=== PATIENT | male | born 1965 | race African-American/Black ===

== ENCOUNTER 2017-08-31 15:36 | Inpatient (IN) | payer OTHER ==
[2017-08-31 17:26] VITALS: BMI 23.3
--- NOTE | 2017-08-31 21:02 | HP ---
Admission ROS [facility] Chief Complaint: Seeking admission to Rehab. Allergies/Adverse Reactions: Allergies Allergy/AdvReac Type Severity Reaction Status Date / Time No Known Allergies Allergy Verified 08/31/17 23:18 History of Present Illness: 52 years old male with a long history of alcohol dependence is seeking admission to Rehab. As per patient, this is his first admission to [facility] and to Rehab. He has medical history of depression and anxiety and he denies suicide attempt and suicidal ideation at this time. - Ebola screening Have you traveled outside of the country in the last 21 days: No (N) Have you had contact with anyone from an Ebola affected area: No Have you been sick,other than usual withdrawal symptoms: No Do you have a fever: No - Review of Systems Constitutional: No Symptoms Reported EENT: reports: No Symptoms Reported Respiratory: reports: No Symptoms reported Cardiac: reports: No Symptoms Reported GI: reports: No Symptoms Reported : reports: No Symptoms Reported Musculoskeletal: reports: No Symptoms Reported Integumentary: reports: No Symptoms Reported Neuro: reports: No Symptoms reported Endocrine: reports: No Symptoms Reported Hematology: reports: No Symptoms Reported Psychiatric: reports: No Sypmtoms Reported, Orientated x3 Other Systems: Reviewed and Negative Patient History - Patient Medical History Hx Anemia: No Hx Asthma: No Hx Chronic Obstructive Pulmonary Disease (COPD): No Hx Cancer: No Hx Cardiac Disorders: No Hx Congestive Heart Failure: No Hx Hypertension: No Hx Hypercholesterolemia: No Hx Pacemaker: No HX Cerebrovascular Accident: No Hx Seizures: No Hx Dementia: No Hx Diabetes: No Hx Gastrointestinal Disorders: No Hx Liver Disease: No Hx Genitourinary Disorders: No Hx Sexually Transmitted Disorders: No Hx Renal Disease (ESRD): No Hx Thyroid Disease: No Hx Human Immunodeficiency Virus (HIV): No (Negative 2008) Hx Hepatitis C: No Hx Depression: Yes (Not on medication) Hx Suicide Attempt: No (Denies suicide attempt and suicidal ideation at this time) Hx Bipolar Disorder: No Hx Schizophrenia: No Other Medical History: Anxiety- Not on medication - Patient Surgical History Past Surgical History: No - PPD History Previous Implant?: Yes Documented Results: Negative w/o proof Implanted On Prior [facility] Admission?: No PPD to be Administered?: Yes - Reproductive History Patient is a Female of Child Bearing Age (11 -55 yrs old): No (MALE) - Smoking Cessation Smoking history: Former smoker Have you smoked in the past 12 months: No Hx Chewing Tobacco Use: No Initiated information on smoking cessation: No - Substance & Tx. History Hx Alcohol Use: Yes Hx Substance Use: Yes Substance Use Type: Alcohol, Cocaine Hx Substance Use Treatment: Yes ([place], [place]) - Substances Abused Alcohol Route: Oral Frequency: Daily Amount used: VODKA - 1 LITER Age of first use: 13 Date of Last Use: 08/30/17 Cocaine Route: Smoking Frequency: Daily Amount used: $100 Age of first use: 18 Date of Last Use: 08/30/17 Family Disease History - Family Disease History Family History: Denies Admission Physical Exam [facility] - Vital Signs Vital Signs: Vital Signs - 24 hr 08/31/17 17:24 Temperature 97.1 F L Pulse Rate 59 L Respiratory 17 Rate Blood Pressure 104/69 - Physical General Appearance: Yes: Within Normal Limits, No Apparent Distress, Appropriately Dressed HEENTM: Yes: EOMI, Normal ENT Inspection, Normocephalic, Normal Voice, ALEKSANDRA Respiratory: Yes: Lungs Clear, Normal Breath Sounds, No Respiratory Distress Neck: Yes: Supple Breast: Yes: Breast Exam Deferred Abdominal: Yes: Normal Bowel Sounds, Non Tender, Soft Genitourinary: Yes: Within Normal Limits Back: Yes: Normal Inspection Musculoskeletal: Yes: Within Normal Limits, Gait Steady Extremities: Yes: Normal Inspection, Non-Tender Neurological: Yes: Fully Oriented, Normal Mood/Affect, Normal Response Integumentary: Yes: Warm Lymphatic: Yes: Within Normal Limits - Diagnostic (1) Uncomplicated alcohol dependence Current Visit: Yes Status: Chronic (2) Cocaine dependence, uncomplicated Current Visit: Yes Status: Chronic (3) Depression Current Visit: Yes Status: Chronic Qualifiers: Depression Type: unspecified Qualified Code(s): F32.9 - Major depressive disorder, single episode, unspecified (4) Anxiety Current Visit: Yes Status: Chronic Cleared for Admission [facility] - Detox or Rehab [facility] Level of Care: Observation Bed Claeared for Rehab Admission: Yes [facility] Breath Alcohol Content Breath Alcohol Content: 0 Urine Drug Screen - Results Drug Screen Negative: No Urine Drug Screen Results: YEISON-Cocaine, BZO-Benzodiazepines Inpatient Rehab Admission - Initial Determination Are CD services needed?: Yes Free of communicable disease: Yes Not in need of hospitalization: Yes - Rehab Admission Criteria Previous failed treatment: Yes Poor recovery environment: Yes Comorbidities: No Lacks judgement: No Patient is meeting Inpatient Rehab admission criteria:: Yes
[2017-08-31] MEDS ORDERED: LOPERAMIDE HCL 2 MG CAPSULE PO PRN (21:15)
[2017-08-31] MEDS ORDERED: MENTHOL/PHENOL 1 EACH UD MM PRN (21:15)
[2017-08-31] MEDS ORDERED: ACETAMINOPHEN 325 MG TABLET (FP) PO PRN (21:15)
[2017-08-31] MEDS ORDERED: MAGNESIUM HYDROX 2400MG/30ML ORAL SUSPENSION 30 ML CUP PO PRN (21:15)
[2017-08-31] MEDS ORDERED: MAG HYDROX/AL HYDROX/SIMETH 30 ML UNIT-DOSE CUP PO PRN (21:15)
[2017-08-31] MEDS ORDERED: IBUPROFEN 400 MG TABLET (FP) PO PRN (21:15)
[2017-08-31] MEDS ORDERED: NICOTINE POLACRILEX 2 MG GUM BUC PRN (21:15)
[2017-08-31] MEDS ORDERED: MAGNESIUM CITRATE 300 ML BOTTLE PO PRN (21:15)
[2017-08-31] MEDS ORDERED: guaiFENesin/D-METHORPHAN HB 10 ML UNIT-DOSE CUPS PO PRN (21:15)
[2017-08-31] MEDS ORDERED: P-EPHED 60MG/TRIPROLIDI 2.5MG TABLET PO PRN (21:15)
[2017-08-31] MEDS: THIAMINE HCL 100 MG TABLET (FP) PO SCH (23:22)
[2017-08-31] MEDS ORDERED: TUBERCULIN PPD 5 TU/0.1ML VIAL ID ONE (23:27)
[2017-09-01 09:28] LABS: URINE APPEARANCE CLEAR; URINE BILIRUBIN NEGATIVE (<2.0 mg/dL); URINE COLOR LTYELLOW; URINE GLUCOSE (UA) NEGATIVE (NEGATIVE); URINE KETONE NEGATIVE (NEGATIVE); URINE LEUK ESTERASE NEGATIVE (NEGATIVE); URINE NITRITE NEGATIVE (NEGATIVE); URINE PROTEIN NEGATIVE (NEGATIVE); URINE UROBILINOGEN NEGATIVE mg/dL (0.2-1.0)
[2017-09-01] MEDS: PRENATAL VITAMINS W/ FOLIC ACID TABLET (FP) PO SCH (10:50)
[2017-09-01] MEDS: NICOTINE 14 MG/24 HOURS TOPICAL PATCH TD SCH (10:50)
[2017-09-01 11:11] LABS: HEMATOCRIT 40.5 % (35.4-49); HEMOGLOBIN 13.5 GM/dL (11.7-16.9); MCH 31.4 pg (25.7-33.7); MCHC 33.4 g/dl (32.0-35.9); MEAN CELL VOLUME 94.2 fl (80-96); MEAN PLT VOLUME 8.8 fl (7.5-11.1); PLATELET COUNT 229 K/MM3 (134-434); RDW 12.2 % (11.9-15.9); WHITE BLOOD COUNT 6.7 K/mm3 (4.0-10.0)
[2017-09-01 11:32] LABS: CHLORIDE 105 mmol/L (98-107); POTASSIUM 4.2 mmol/L (3.5-5.1); SODIUM 141 mmol/L (136-145)
[2017-09-01 11:53] LABS: ALBUMIN 3.7 g/dl (3.4-5.0); ALK PHOS 55 U/L (45-117); ANION GAP 8 (8-16); BILIRUBIN,TOTAL 0.5 mg/dL (0.2-1.0); BLOOD UREA NITROGEN 17 mg/dL (7-18); CALCIUM 9.2 mg/dL (8.5-10.1); CO2 28 mmol/L (21-32); CREATININE 0.9 mg/dL (0.7-1.3); GLUCOSE,RANDOM 88 mg/dL (74-106); SGOT/AST 21 U/L (15-37); SGPT/ALT 26 U/L (12-78); TOT PROT 7.3 g/dl (6.4-8.2)
[2017-09-01] MEDS: THIAMINE HCL 100 MG TABLET (FP) PO SCH (21:43)
[2017-09-02] MEDS: PRENATAL VITAMINS W/ FOLIC ACID TABLET (FP) PO SCH (10:00)
[2017-09-02] MEDS: NICOTINE 14 MG/24 HOURS TOPICAL PATCH TD SCH (10:00)
--- NOTE | 2017-09-02 10:18 | EKG ---
Test Reason : Blood Pressure : / mmHG Vent. Rate : 048 BPM Atrial Rate : 048 BPM P-R Int : 190 ms QRS Dur : 090 ms QT Int : 440 ms P-R-T Axes : -13 036 -04 degrees QTc Int : 393 ms SINUS BRADYCARDIA OTHERWISE NORMAL ECG NO PREVIOUS ECGS AVAILABLE Confirmed by HENRIETTA HUGGINS MD ([id number]) on 09/02/2017 10:17:29 AM Referred By: Confirmed By:HENRIETTA HUGGINS MD
[2017-09-02] MEDS: THIAMINE HCL 100 MG TABLET (FP) PO SCH (21:30)
--- NOTE | 2017-09-03 10:48 | HP ---
Psychiatrist Admission - Data Date of interview: 09/03/17 Admission source: self Identifying data: This is 52 years old male, single, father of 5two, homeless, unemployed, on PA, with a history of two psychiatric hospitalization due to depressed mood, with most recent one a week ago at [facility]. This is first admition to [facility] for rehabilitation. Patient reports Crack dependency since 8 months ago. Medical History: Denies significant medical issues. Psychiatric History: Patient reports depression since 8 month ago after in a family. Reports to carry Depressive disorder, as per computer MDD. denies suicidal, homicidal history. Physical/Sexual Abuse/Trauma History: Denies Additional Comment: Patient motivated to quit Crack abuse/ dependence, denies other street drugs usage. Vital Signs: Vital Signs - 24 hr 09/03/17 09/03/17 09/03/17 00:30 03:30 07:31 Temperature 98.0 F Pulse Rate 55 L Respiratory 18 18 16 Rate Blood Pressure 91/57 Allergies/Adverse Reactions: Allergies Allergy/AdvReac Type Severity Reaction Status Date / Time No Known Allergies Allergy Verified 08/31/17 23:18 - Substance Abuse/Tx History Hx Alcohol Use: No (Denies) Substance Use Type: Cocaine Mental Status Exam - Mental Status Exam Alert and Oriented to: Place, Person Cognitive Function: Fair Patient Appearance: Well Groomed Mood: Anxious Affect: Mood Congruent Patient Behavior: Cooperative Speech Pattern: Appropriate Voice Loudness: Normal Thought Process: Goal Oriented Thought Disorder: Being Controlled Hallucinations: Denies Suicidal Ideation: Denies Homicidal Ideation: Denies Insight/Judgement: Fair Sleep: Fair Appetite: Good Muscle strength/Tone: Normal Gait/Station: Normal Additional Comments: Observation. Detox unit care protocol Psychiatric Findings - Problem List (Markle 1, 2,3) (1) Drug-induced mood disorder Current Visit: Yes Status: Suspected (2) Anxiety Current Visit: Yes Status: Chronic (3) Cocaine dependence, uncomplicated Current Visit: Yes Status: Chronic (4) Depression Current Visit: Yes Status: Chronic Qualifiers: Depression Type: unspecified Qualified Code(s): F32.9 - Major depressive disorder, single episode, unspecified (5) Uncomplicated alcohol dependence Current Visit: Yes Status: Chronic - Initial Treatment Plan Initial Treatment Plan: Observation. Detox unit care protocol
[2017-09-03] MEDS: PRENATAL VITAMINS W/ FOLIC ACID TABLET (FP) PO SCH (11:08)
[2017-09-03] MEDS: NICOTINE 14 MG/24 HOURS TOPICAL PATCH TD SCH (11:08)
[2017-09-03] MEDS ORDERED: diphenhydrAMINE HCL 50 MG CAPSULE PO ONE (13:45)
[2017-09-03] MEDS: THIAMINE HCL 100 MG TABLET (FP) PO SCH (21:43)
[2017-09-03] MEDS: MELATONIN 5 MG TABLETS PO PRN (21:43)
[2017-09-04] MEDS: NICOTINE 14 MG/24 HOURS TOPICAL PATCH TD SCH (10:38)
[2017-09-04] MEDS: PRENATAL VITAMINS W/ FOLIC ACID TABLET (FP) PO SCH (10:39)
--- NOTE | 2017-09-04 12:59 | PN ---
S Progress Note Note: Vital Signs Temperature 98.7 F 09/04/17 06:59 Pulse Rate 55 L 09/04/17 06:59 Respiratory Rate 16 09/04/17 06:59 Blood Pressure 99/63 09/04/17 06:59 O2 Sat by Pulse Oximetry (%) Patient requested d/c NRTS. Reports hes a non-smoker. Nicotine patch and gum d/ c as per patient request. Continue to monitor.
[2017-09-04] MEDS: THIAMINE HCL 100 MG TABLET (FP) PO SCH (21:21)
[2017-09-05] MEDS: PRENATAL VITAMINS W/ FOLIC ACID TABLET (FP) PO SCH (10:46)
[2017-09-05] MEDS: MELATONIN 5 MG TABLETS PO PRN (21:53)
[2017-09-05] MEDS: THIAMINE HCL 100 MG TABLET (FP) PO SCH (21:53)
[2017-09-06] MEDS: PRENATAL VITAMINS W/ FOLIC ACID TABLET (FP) PO SCH (10:15)
[2017-09-06] MEDS: THIAMINE HCL 100 MG TABLET (FP) PO SCH (21:11)
[2017-09-06] MEDS: MELATONIN 5 MG TABLETS PO PRN (21:11)
[2017-09-07] MEDS: PRENATAL VITAMINS W/ FOLIC ACID TABLET (FP) PO SCH (10:38)
[2017-09-07] MEDS: COLLOIDAL OATMEAL 1 BAR EACH TP PRN (15:14)
[2017-09-07] MEDS: THIAMINE HCL 100 MG TABLET (FP) PO SCH (21:48)
[2017-09-07] MEDS: MELATONIN 5 MG TABLETS PO PRN (21:49)
[2017-09-08] MEDS: PRENATAL VITAMINS W/ FOLIC ACID TABLET (FP) PO SCH (10:28)
[2017-09-08] MEDS: THIAMINE HCL 100 MG TABLET (FP) PO SCH (21:06)
[2017-09-08] MEDS: MELATONIN 5 MG TABLETS PO PRN (21:07)
[2017-09-09] MEDS: PRENATAL VITAMINS W/ FOLIC ACID TABLET (FP) PO SCH (10:23)
[2017-09-09] MEDS: MELATONIN 5 MG TABLETS PO PRN (21:43)
[2017-09-09] MEDS: THIAMINE HCL 100 MG TABLET (FP) PO SCH (21:43)
[2017-09-10] MEDS: PRENATAL VITAMINS W/ FOLIC ACID TABLET (FP) PO SCH (10:52)
[2017-09-10] MEDS: MELATONIN 5 MG TABLETS PO PRN (21:02)
[2017-09-10] MEDS: THIAMINE HCL 100 MG TABLET (FP) PO SCH (21:02)
[2017-09-11] MEDS: PRENATAL VITAMINS W/ FOLIC ACID TABLET (FP) PO SCH (10:27)
[2017-09-11] MEDS: THIAMINE HCL 100 MG TABLET (FP) PO SCH (21:30)
[2017-09-11] MEDS: MELATONIN 5 MG TABLETS PO PRN (21:30)
[2017-09-12] MEDS: PRENATAL VITAMINS W/ FOLIC ACID TABLET (FP) PO SCH (10:20)
[2017-09-12] MEDS: MELATONIN 5 MG TABLETS PO PRN (21:51)
[2017-09-12] MEDS: THIAMINE HCL 100 MG TABLET (FP) PO SCH (21:51)
[2017-09-13] MEDS: PRENATAL VITAMINS W/ FOLIC ACID TABLET (FP) PO SCH (10:29)
[2017-09-13] MEDS: MELATONIN 5 MG TABLETS PO PRN (21:34)
[2017-09-13] MEDS: THIAMINE HCL 100 MG TABLET (FP) PO SCH (21:34)
[2017-09-14] MEDS: COLLOIDAL OATMEAL 1 BAR EACH TP PRN (10:22)
[2017-09-14] MEDS: PRENATAL VITAMINS W/ FOLIC ACID TABLET (FP) PO SCH (10:23)
[2017-09-14] MEDS: THIAMINE HCL 100 MG TABLET (FP) PO SCH (21:46)
[2017-09-14] MEDS: MELATONIN 5 MG TABLETS PO PRN (21:46)
[2017-09-15] MEDS: PRENATAL VITAMINS W/ FOLIC ACID TABLET (FP) PO SCH (10:23)
[2017-09-15] MEDS: THIAMINE HCL 100 MG TABLET (FP) PO SCH (21:43)
[2017-09-15] MEDS: MELATONIN 5 MG TABLETS PO PRN (21:44)
[2017-09-16] MEDS: PRENATAL VITAMINS W/ FOLIC ACID TABLET (FP) PO SCH (10:28)
[2017-09-16] MEDS: MELATONIN 5 MG TABLETS PO PRN (21:35)
[2017-09-16] MEDS: THIAMINE HCL 100 MG TABLET (FP) PO SCH (21:45)
[2017-09-17] MEDS: PRENATAL VITAMINS W/ FOLIC ACID TABLET (FP) PO SCH (10:15)
[2017-09-17] MEDS: MELATONIN 5 MG TABLETS PO PRN (21:37)
[2017-09-17] MEDS: THIAMINE HCL 100 MG TABLET (FP) PO SCH (21:37)
[2017-09-18] MEDS: PRENATAL VITAMINS W/ FOLIC ACID TABLET (FP) PO SCH (10:25)
[2017-09-18] MEDS: THIAMINE HCL 100 MG TABLET (FP) PO SCH (21:37)
[2017-09-18] MEDS: MELATONIN 5 MG TABLETS PO PRN (21:37)
[2017-09-19] MEDS: PRENATAL VITAMINS W/ FOLIC ACID TABLET (FP) PO SCH (10:20)
[2017-09-19] MEDS: THIAMINE HCL 100 MG TABLET (FP) PO SCH (21:54)
[2017-09-19] MEDS: MELATONIN 5 MG TABLETS PO PRN (21:54)
[2017-09-20] MEDS: PRENATAL VITAMINS W/ FOLIC ACID TABLET (FP) PO SCH (10:31)
[2017-09-20] MEDS: THIAMINE HCL 100 MG TABLET (FP) PO SCH (21:50)
[2017-09-20] MEDS: MELATONIN 5 MG TABLETS PO PRN (21:50)
[2017-09-21] MEDS: PRENATAL VITAMINS W/ FOLIC ACID TABLET (FP) PO SCH (10:37)
[2017-09-21] MEDS: THIAMINE HCL 100 MG TABLET (FP) PO SCH (21:47)
[2017-09-21] MEDS: MELATONIN 5 MG TABLETS PO PRN (21:47)
[2017-09-22] MEDS: PRENATAL VITAMINS W/ FOLIC ACID TABLET (FP) PO SCH (10:54)
[2017-09-22] MEDS: MELATONIN 5 MG TABLETS PO PRN (21:54)
[2017-09-22] MEDS: THIAMINE HCL 100 MG TABLET (FP) PO SCH (21:54)
[2017-09-23] MEDS: COLLOIDAL OATMEAL 1 BAR EACH TP PRN (07:22)
[2017-09-23] MEDS: PRENATAL VITAMINS W/ FOLIC ACID TABLET (FP) PO SCH (10:15)
[2017-09-23] MEDS: MELATONIN 5 MG TABLETS PO PRN (21:20)
[2017-09-23] MEDS: THIAMINE HCL 100 MG TABLET (FP) PO SCH (21:20)
[2017-09-24 07:10] VITALS: PULSE 61
[2017-09-24] MEDS: PRENATAL VITAMINS W/ FOLIC ACID TABLET (FP) PO SCH (10:22)
[2017-09-24] MEDS: THIAMINE HCL 100 MG TABLET (FP) PO SCH (20:59)
[2017-09-24] MEDS: MELATONIN 5 MG TABLETS PO PRN (21:00)
[2017-09-25 07:02] VITALS: BP 108/61; TEMP 98
--- NOTE | 2017-09-25 10:00 | PN ---
Psychiatric Progress Note Vital Signs: Vital Signs Period Temp Pulse Resp BP Sys/Almendarez Pulse Ox Last 24 Hr 98.0 F 61 16-18 108/61 Date of Session: 09/25/17 Chief Complaint:: Discharge Note HPI: Patient addressing Alcohol and Cocaine dependence comorbid with Substance- Induced Mood Disorder Current Medications: Active Medications Generic Name Dose Route Start Last Admin Trade Name Freq PRN Reason Stop Dose Admin Acetaminophen 650 mg 08/31/17 21:15 Tylenol - PO Q4H PRN FEVER Al Hydroxide/Mg Hydroxide 30 ml 08/31/17 21:15 09/10/17 21:02 Mylanta Oral Suspension - PO 30 ml Q6H PRN Administration DYSPEPSIA Colloidal Oatmeal 1 applic 09/07/17 13:13 09/23/17 07:22 Aveeno Soap - TP 1 bar DAILY PRN Administration HYGEINE Eucalyptus/Menthol/Phenol/Sorbitol 1 each 08/31/17 21:15 Cepastat Lozenge - MM Q4H PRN SORE THROAT Guaifenesin 10 ml 08/31/17 21:15 Robitussin Dm - PO Q6H PRN COUGH Ibuprofen 400 mg 08/31/17 21:15 Motrin - PO Q6H PRN Pain level 4-6 Loperamide HCl 4 mg 08/31/17 21:15 Imodium - PO Q6H PRN DIARRHEA Magnesium Citrate 300 ml 08/31/17 21:15 Citroma - PO Q48H PRN CONSTIPATION Magnesium Hydroxide 30 ml 08/31/17 21:15 Milk Of Magnesia - PO DAILY PRN CONSTIPATION Melatonin 5 mg 08/31/17 22:00 09/24/17 21:00 Melatonin PO 5 mg HS PRN Administration INSOMNIA Multivit/Folic Acid/Iron 1 tab 09/01/17 10:00 09/24/17 10:22 Vitamins (Sjr) - PO 1 tab DAILY AMAN Administration Pseudoephedrine/Triprolidine 1 combo 08/31/17 21:15 Actifed - PO TID PRN NASAL CONGESTION Thiamine HCl 100 mg 08/31/17 22:00 09/24/17 20:59 Vitamin B1 - PO 100 mg HS AMAN Administration Current Side Effect: No Lab tests ordered: Yes Lab tests reviewed: Yes Provider note:: Noman has completed this program today. He has met his treatment goals and will continue to address his issues by atending AA/NA. 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 He is stable for discharge today Total face to face time:: 35 Mental Status Exam - Mental Status Exam Alert and Oriented to: Time, Place, Person Cognitive Function: Fair Patient Appearance: Well Groomed Mood: Hopeful, Euthymic Affect: Appropriate Patient Behavior: Cooperative Speech Pattern: Clear Voice Loudness: Normal Thought Process: Intact Thought Disorder: Not Present Hallucinations: Denies Suicidal Ideation: Denies Homicidal Ideation: Denies Insight/Judgement: Fair Sleep: Fair Appetite: Good Muscle strength/Tone: Normal Gait/Station: Normal Psychiatric Treatment Plan - Problem List (1) Alcohol dependence Current Visit: Yes (2) Cocaine dependence Current Visit: Yes Initial treatment plan: Patient is discharged today and plans to move to [place] where he will enroll in outpatient treatment
[2017-09-25] MEDS: PRENATAL VITAMINS W/ FOLIC ACID TABLET (FP) PO SCH (10:04)
== END 2017-09-25 10:30 | disposition home or self-care (01) | DRG 772 ==
LOC: YASAS 15:36 → Y5N 22:08
PROVIDERS: ADMIT Psychiatry & Neurology Psychiatry; ATTEND Psychiatry & Neurology Psychiatry
PROC: HZ42ZZZ Group Counseling for Substance Abuse Treatment, Cognitive-Behavioral (ICD-10-PCS; principal; 2017-08-31)
DX: F10.20 Alcohol dependence, uncomplicated (principal); F14.20 Cocaine dependence, uncomplicated; F19.24 Other psychoactive substance dependence with psychoactive substance-induced mood disorder; F41.9 Anxiety disorder, unspecified; F32.9 Major depressive disorder, single episode, unspecified
CPT/HCPCS: 36415; 80053; 81003; 85027; 85660; 86593; 93005; 93010

== ENCOUNTER 2018-01-29 12:16 | Inpatient (IN) | payer OTHER ==
[2018-01-29 12:51] VITALS: BMI 22.9
--- NOTE | 2018-01-29 13:27 | HP ---
CIWA Score Nausea/Vomitin-Mild Nausea/No Vomiting Muscle Tremors: 4-Moderate,w/Arms Extend Anxiety: 3 Agitation: 3 Paroxysmal Sweats: 3 Orientation: 0-Oriented Tacttile Disturbances: 0-None Auditory Disturbances: 0-None Visual Disturbances: 0-None Headache: 0-None Present CIWA-Ar Total Score: 14 - Admission Criteria [facility]ASAS Guidelines: Admission for Medically Managed Detox: Requires at least one of the followin. CIWA greater than 12 2. Seizures within the past 24 hours 3. Delirium tremens within the past 24 hours 4. Hallucinations within the past 24 hours 5. Acute intervention needed for co occurring medical disorder 6. Acute intervention needed for co occurring psychiatric disorder 7. Severe withdrawal that cannot be handled at a lower level of care (continued vomiting, continued diarrhea, abnormal vital signs) requiring intravenous medication and/or fluids 8. Admission ROS [facility] - HPI Chief Complaint: I have a family and need to get my life together. Allergies/Adverse Reactions: Allergies Allergy/AdvReac Type Severity Reaction Status Date / Time No Known Allergies Allergy Verified 08/31/17 23:18 History of Present Illness: pt is a 52yr old male with a history of alcohol and cocaine dependence seeking detox for treatment. Exam Limitations: No Limitations - Ebola screening Have you traveled outside of the country in the last 21 days: No Have you had contact with anyone from an Ebola affected area: No Have you been sick,other than usual withdrawal symptoms: No Do you have a fever: No - Review of Systems Constitutional: Chills, Diaphoresis, Loss of Appetite, Night Sweats, Changes in sleep, Weight Stable EENT: reports: No Symptoms Reported Respiratory: reports: No Symptoms reported Cardiac: reports: No Symptoms Reported GI: reports: Constipated, Nausea, Poor Fluid Intake, Indigestion : reports: No Symptoms Reported Musculoskeletal: reports: No Symptoms Reported Integumentary: reports: Flushing, Sweating Neuro: reports: Headache, Tingling, Tremors Endocrine: reports: Flushing, Intolerance to Heat, Increased Hunger Hematology: reports: No Symptoms Reported Psychiatric: reports: Judgement Intact, Mood/Affect Appropiate, Orientated x3, Agitated, Anxious Other Systems: Reviewed and Negative Patient History - Patient Medical History Hx Anemia: No Hx Asthma: No Hx Chronic Obstructive Pulmonary Disease (COPD): No Hx Cancer: No Hx Cardiac Disorders: No Hx Congestive Heart Failure: No Hx Hypertension: No Hx Hypercholesterolemia: No Hx Pacemaker: No HX Cerebrovascular Accident: No Hx Seizures: No Hx Dementia: No Hx Diabetes: No Hx Gastrointestinal Disorders: No Hx Liver Disease: No Hx Genitourinary Disorders: No Hx Sexually Transmitted Disorders: No Hx Renal Disease (ESRD): No Hx Thyroid Disease: No Hx Human Immunodeficiency Virus (HIV): No (Negative 2008) Hx Hepatitis C: No Hx Depression: Yes (Not on medication) Hx Suicide Attempt: No (Denies suicide attempt and suicidal ideation at this time) Hx Bipolar Disorder: No Hx Schizophrenia: No Other Medical History: not interested with seeing psych, not taking medication - Patient Surgical History Past Surgical History: No Hx Neurologic Surgery: No Hx Cataract Extraction: No Hx Cardiac Surgery: No Hx Lung Surgery: No Hx Breast Surgery: No Hx Breast Biopsy: No Hx Abdominal Surgery: No Hx Appendectomy: No Hx Cholecystectomy: No Hx Genitourinary Surgery: No Hx Section: No Hx Orthopedic Surgery: No Anesthesia Reaction: No - PPD History Previous Implant?: Yes Documented Results: Negative w/proof Date: 09/02/17 Results: 0 mm PPD to be Administered?: No - Reproductive History Patient is a Female of Child Bearing Age (11 -55 yrs old): No - Smoking Cessation Smoking history: Former smoker Have you smoked in the past 12 months: No Hx Chewing Tobacco Use: No Initiated information on smoking cessation: No - Substance & Tx. History Hx Alcohol Use: Yes Hx Substance Use: No Substance Use Type: Alcohol, Cocaine Hx Substance Use Treatment: No (last detox 08/2017) - Substances Abused Alcohol Route: Oral Frequency: Daily Amount used: a fifth of vodka Age of first use: 14 Date of Last Use: 01/29/18 Cocaine Route: Inhalation Frequency: Daily Amount used: 100 dollars Age of first use: 22 Date of Last Use: 01/28/18 Marijuana/Hashish Route: Smoking Frequency: Daily Amount used: 1 blunt Age of first use: 12 Date of Last Use: 01/28/18 Family Disease History - Family Disease History Family Disease History: Diabetes: Mother (h/o diabetes) Admission Physical Exam [facility] - Vital Signs Vital Signs: Vital Signs - 24 hr 01/29/18 12:50 Temperature 97.3 F L Pulse Rate 58 L Respiratory 18 Rate Blood Pressure 123/78 - Physical General Appearance: Yes: Appropriately Dressed, Moderate Distress, Thin, Tremorous, Irritable, Sweating, Anxious HEENTM: Yes: Hearing grossly Normal, Normal Voice, Nasal Congestion, Rhinorrhea Respiratory: Yes: Lungs Clear, Normal Breath Sounds, No Respiratory Distress Neck: Yes: No masses,lesions,Nodules Breast: Yes: Within Normal Limits Cardiology: Yes: Regular Rhythm, Regular Rate, S1, S2 Abdominal: Yes: Normal Bowel Sounds, Non Tender, Soft Genitourinary: Yes: Within Normal Limits Back: Yes: Normal Inspection Musculoskeletal: Yes: full range of Motion Extremities: Yes: Normal Capillary Refill, Normal Inspection, Non-Tender, Tremors Neurological: Yes: Fully Oriented, Alert, Normal Response Integumentary: Yes: Normal Color, Diaphoresis Lymphatic: Yes: Within Normal Limits - Diagnostic (1) Cocaine dependence, uncomplicated Current Visit: Yes Status: Chronic (2) Uncomplicated alcohol dependence Current Visit: Yes Status: Chronic (3) Cannabis dependence Current Visit: Yes Status: Chronic (4) Former cigarette smoker Current Visit: Yes Status: Chronic Cleared for Admission [facility] - Detox or Rehab [facility] Level of Care: Medically Managed Detox Regimen/Protocol: Librium [facility] Breath Alcohol Content Breath Alcohol Content: 0.104 Urine Drug Screen - Results Drug Screen Negative: No Urine Drug Screen Results: THC-Marijuana, YEISON-Cocaine
[2018-01-29] MEDS ORDERED: MAG HYDROX/AL HYDROX/SIMETH 30 ML UNIT-DOSE CUP PO PRN (13:47)
[2018-01-29] MEDS ORDERED: MAGNESIUM CITRATE 300 ML BOTTLE PO PRN (13:47)
[2018-01-29] MEDS ORDERED: LOPERAMIDE HCL 2 MG CAPSULE PO PRN (13:47)
[2018-01-29] MEDS ORDERED: hydrOXYzine PAMOATE 50 MG CAPSULE (FP) PO PRN (13:47)
[2018-01-29] MEDS ORDERED: ACETAMINOPHEN 325 MG TABLET (FP) PO PRN (13:47)
[2018-01-29] MEDS ORDERED: chlordiazePOXIDE HCL 25 MG CAPSULE PO PRN (13:47)
[2018-01-29] MEDS ORDERED: P-EPHED 60MG/TRIPROLIDI 2.5MG TABLET PO PRN (13:47)
[2018-01-29] MEDS ORDERED: guaiFENesin/D-METHORPHAN HB 10 ML UNIT-DOSE CUPS PO PRN (13:47)
[2018-01-29] MEDS ORDERED: IBUPROFEN 400 MG TABLET (FP) PO PRN (13:47)
[2018-01-29] MEDS ORDERED: MAGNESIUM HYDROX 2400MG/30ML ORAL SUSPENSION 30 ML CUP PO PRN (13:47)
[2018-01-29] MEDS ORDERED: MENTHOL/PHENOL 1 EACH UD MM PRN (13:47)
[2018-01-29] MEDS ORDERED: chlordiazePOXIDE HCL 25 MG CAPSULE PO ONE (15:50)
[2018-01-29] MEDS: chlordiazePOXIDE HCL 25 MG CAPSULE PO SCH ×2 (17:54→22:38)
[2018-01-29] MEDS ORDERED: MELATONIN 5 MG TABLETS PO PRN (22:00)
[2018-01-29] MEDS: THIAMINE HCL 100 MG TABLET (FP) PO SCH (22:38)
[2018-01-30] MEDS: chlordiazePOXIDE HCL 25 MG CAPSULE PO SCH ×4 (05:05→22:45)
[2018-01-30] MEDS: PRENATAL VITAMINS W/ FOLIC ACID TABLET (FP) PO SCH (10:07)
[2018-01-30 10:55] LABS: ALBUMIN 4.6 g/dl (3.4-5.0); ALK PHOS 50 U/L (45-117); ANION GAP 11 MMOL/L (8-16); BLOOD UREA NITROGEN 14 mg/dL (7-18); CALCIUM 9.2 mg/dL (8.5-10.1); CHLORIDE 103 mmol/L (98-107); CO2 26 mmol/L (21-32); CREATININE 1.1 mg/dL (0.55-1.3); GLUCOSE,RANDOM 95 mg/dL (74-106); POTASSIUM 3.5 mmol/L (3.5-5.1); SGOT/AST 19 U/L (15-37); SGPT/ALT 19 U/L (13-61); SODIUM 140 mmol/L (136-145); TOT PROT 8.1 g/dl (6.4-8.2)
[2018-01-30 11:15] LABS: HEMOGLOBIN 13.1 GM/dL (11.7-16.9); MCH 32.4 pg (25.7-33.7); MCHC 34.5 g/dl (32.0-35.9); MEAN CELL VOLUME 93.9 fl (80-96); MEAN PLT VOLUME 9.4 fl (7.5-11.1); PLATELET COUNT 290 K/MM3 (134-434); RBC 4.05 M/mm3 (4.00-5.60); RDW 12.9 % (11.9-15.9); WHITE BLOOD COUNT 8.9 K/mm3 (4.0-10.0)
--- NOTE | 2018-01-30 12:05 | PN ---
S CIWA - CIWA Score Nausea/Vomitin Muscle Tremors: 4-Moderate,w/Arms Extend Anxiety: 4-Mod. Anxious/Guarded Agitation: 4-Moderately Restless Paroxysmal Sweats: 3 Orientation: 0-Oriented Tacttile Disturbances: 1-Very Mild Itch/Numbness Auditory Disturbances: 0-None Visual Disturbances: 0-None Headache: 0-None Present CIWA-Ar Total Score: 18 [facility] Progress Note (SOAP) Subjective: Sweating, interrupted sleep Objective: 01/30/18 12:03 Last Vital Signs Temp Pulse Resp BP Pulse Ox 97.0 F L 59 L 18 100/57 L 01/30/18 09:06 01/30/18 09:06 01/30/18 09:06 01/30/18 09:06 Laboratory Tests 01/30/18 01/30/18 05:00 05:00 WBC 8.9 RBC 4.05 Hgb 13.1 Hct 38.0 MCV 93.9 MCH 32.4 MCHC 34.5 RDW 12.9 Plt Count 290 D MPV 9.4 Sodium 140 Potassium 3.5 Chloride 103 Carbon Dioxide 26 Anion Gap 11 BUN 14 Creatinine 1.1 Creat Clearance w eGFR > 60 Random Glucose 95 Calcium 9.2 Total Bilirubin 1.0 AST 19 ALT 19 Alkaline Phosphatase 50 Total Protein 8.1 Albumin 4.6 Labs reviewed Assessment: 01/30/18 12:05 Withdrawal symptoms Plan: Continue detox Encouraged PO water intake
[2018-01-30] MEDS: THIAMINE HCL 100 MG TABLET (FP) PO SCH (22:44)
[2018-01-31] MEDS: chlordiazePOXIDE HCL 25 MG CAPSULE PO SCH ×2 (05:16→10:11)
[2018-01-31 09:25] VITALS: BP 119/71; PULSE 88; TEMP 96.8
[2018-01-31] MEDS: PRENATAL VITAMINS W/ FOLIC ACID TABLET (FP) PO SCH (10:11)
--- NOTE | 2018-01-31 11:33 | PN ---
S CIWA - CIWA Score Nausea/Vomitin-Mild Nausea/No Vomiting Muscle Tremors: 3 Anxiety: 3 Agitation: 3 Paroxysmal Sweats: 3 Orientation: 0-Oriented Tacttile Disturbances: 0-None Auditory Disturbances: 0-None Visual Disturbances: 0-None Headache: 0-None Present CIWA-Ar Total Score: 13 S Progress Note (SOAP) Subjective: Sweating, interrupted sleep, nausea Objective: 01/31/18 11:30 Last Vital Signs Temp Pulse Resp BP Pulse Ox 96.8 F L 88 18 119/71 01/31/18 09:24 01/31/18 09:24 01/31/18 09:24 01/31/18 09:24 Laboratory Tests 01/30/18 01/30/18 01/30/18 05:00 05:00 05:00 WBC 8.9 RBC 4.05 Hgb 13.1 Hct 38.0 MCV 93.9 MCH 32.4 MCHC 34.5 RDW 12.9 Plt Count 290 D MPV 9.4 Sodium 140 Potassium 3.5 Chloride 103 Carbon Dioxide 26 Anion Gap 11 BUN 14 Creatinine 1.1 Creat Clearance w eGFR > 60 Random Glucose 95 Calcium 9.2 Total Bilirubin 1.0 AST 19 ALT 19 Alkaline Phosphatase 50 Total Protein 8.1 Albumin 4.6 RPR Titer Nonreactive Labs reviewed Assessment: 01/31/18 11:32 Withdrawal symptoms Plan: Continue detox Encouraged PO water intake
--- NOTE | 2018-01-31 13:07 | DS ---
[facility] Detox Discharge Summary Admission Date: 01/29/18 Discharge Date: 01/31/18 - History Present History: Alcohol Dependence Additional Comments: 52 years old male admitted on 01/29/18 for alcohol withdrawal sx alert oriented x 3 no acute distress insists to leave the detox unit that the patient wants to go to [facility] tomorrow patient reported that alcohol withdrawal sx is manageable and preferred go home first than [facility] tomorrow - Physical Exam Results Vital Signs: Vital Signs Temperature 96.8 F L 01/31/18 09:24 Pulse Rate 88 01/31/18 09:24 Respiratory Rate 18 01/31/18 09:24 Blood Pressure 119/71 01/31/18 09:24 O2 Sat by Pulse Oximetry (%) Pertinent Admission Physical Exam Findings: alcohol withdrawal sx Vital Signs Temperature 96.8 F L 01/31/18 09:24 Pulse Rate 88 01/31/18 09:24 Respiratory Rate 18 01/31/18 09:24 Blood Pressure 119/71 01/31/18 09:24 O2 Sat by Pulse Oximetry (%) Laboratory Last Values WBC 8.9 K/mm3 (4.0-10.0) 01/30/18 05:00 RBC 4.05 M/mm3 (4.00-5.60) 01/30/18 05:00 Hgb 13.1 GM/dL (11.7-16.9) 01/30/18 05:00 Hct 38.0 % (35.4-49) 01/30/18 05:00 MCV 93.9 fl (80-96) 01/30/18 05:00 MCH 32.4 pg (25.7-33.7) 01/30/18 05:00 MCHC 34.5 g/dl (32.0-35.9) 01/30/18 05:00 RDW 12.9 % (11.9-15.9) 01/30/18 05:00 Plt Count 290 K/MM3 (134-434) D 01/30/18 05:00 MPV 9.4 fl (7.5-11.1) 01/30/18 05:00 Sodium 140 mmol/L (136-145) 01/30/18 05:00 Potassium 3.5 mmol/L (3.5-5.1) 01/30/18 05:00 Chloride 103 mmol/L (98-107) 01/30/18 05:00 Carbon Dioxide 26 mmol/L (21-32) 01/30/18 05:00 Anion Gap 11 MMOL/L (8-16) 01/30/18 05:00 BUN 14 mg/dL (7-18) 01/30/18 05:00 Creatinine 1.1 mg/dL (0.55-1.3) 01/30/18 05:00 Creat Clearance w eGFR > 60 (>60) 01/30/18 05:00 Random Glucose 95 mg/dL (74-106) 01/30/18 05:00 Calcium 9.2 mg/dL (8.5-10.1) 01/30/18 05:00 Total Bilirubin 1.0 mg/dL (0.2-1) 01/30/18 05:00 AST 19 U/L (15-37) 01/30/18 05:00 ALT 19 U/L (13-61) 01/30/18 05:00 Alkaline Phosphatase 50 U/L (45-117) 01/30/18 05:00 Total Protein 8.1 g/dl (6.4-8.2) 01/30/18 05:00 Albumin 4.6 g/dl (3.4-5.0) 01/30/18 05:00 RPR Titer Nonreactive (NONREACTIVE) 01/30/18 05:00 lab noted - Treatment Hospital Course: Detox Protocol Followed, Responded well Patient has Accepted a Rehab Referral to: jacky jaramillo - Medication Discharge Medications: Ambulatory Orders NK [No Known Home Medication] 08/31/17 - Diagnosis (1) Uncomplicated alcohol dependence Current Visit: Yes Status: Acute - AMA Did Patient Leave Against Medical Advice: Yes
[2018-01-31] MEDS ORDERED: chlordiazePOXIDE 5 MG CAPSULE PO SCH (17:00)
[2018-02-01] MEDS ORDERED: chlordiazePOXIDE HCL 10 MG CAPSULE PO SCH (17:00)
== END 2018-01-31 13:33 | disposition left against medical advice (07) | DRG 770 ==
LOC: YASAS 12:16 → Y3N 15:38
PROC: HZ2ZZZZ Detoxification Services for Substance Abuse Treatment (ICD-10-PCS; principal; 2018-01-29)
DX: F10.20 Alcohol dependence, uncomplicated (principal); F14.20 Cocaine dependence, uncomplicated; F12.20 Cannabis dependence, uncomplicated; F41.9 Anxiety disorder, unspecified; F32.9 Major depressive disorder, single episode, unspecified; F19.24 Other psychoactive substance dependence with psychoactive substance-induced mood disorder; Z87.891 Personal history of nicotine dependence
CPT/HCPCS: 36415; 80053; 85027; 86593

== ENCOUNTER 2018-05-30 11:12 | Inpatient (IN) | payer OTHER ==
--- NOTE | 2018-05-30 13:44 | HP ---
CIWA Score Nausea/Vomitin Muscle Tremors: 2 Anxiety: 2 Agitation: 2 Paroxysmal Sweats: 1-Minimal Palms Moist Orientation: 0-Oriented Tacttile Disturbances: 1-Very Mild Itch/Numbness Auditory Disturbances: 1-Very Mild Visual Disturbances: 0-None Headache: 2-Mild CIWA-Ar Total Score: 13 - Admission Criteria OASAS Guidelines: Admission for Medically Managed Detox: Requires at least one of the followin. CIWA greater than 12 2. Seizures within the past 24 hours 3. Delirium tremens within the past 24 hours 4. Hallucinations within the past 24 hours 5. Acute intervention needed for co occurring medical disorder 6. Acute intervention needed for co occurring psychiatric disorder 7. Severe withdrawal that cannot be handled at a lower level of care (continued vomiting, continued diarrhea, abnormal vital signs) requiring intravenous medication and/or fluids 8. Admission ROS BHS - HPI Chief Complaint: i need help to stop drinking alcohol,cocaine and marijuana Allergies/Adverse Reactions: Allergies Allergy/AdvReac Type Severity Reaction Status Date / Time Pork/Porcine Containing Allergy Mild Rash Verified 05/30/18 14:49 Products History of Present Illness: this 53 years old male with alcohol,cocaine and marijuana dependence,seeking detox,mutiple admissions in the past, last detox in [facility] 01/29/18 to 01/31/18 keep relapsing longest period of sobriety 1 year Exam Limitations: No Limitations - Ebola screening Have you traveled outside of the country in the last 21 days: No Have you had contact with anyone from an Ebola affected area: No Do you have a fever: No - Review of Systems Constitutional: Loss of Appetite, Malaise, Night Sweats, Changes in sleep, Weakness, Unintentional Wgt. Loss EENT: reports: Tearing, Nose Congestion Respiratory: reports: No Symptoms reported Cardiac: reports: No Symptoms Reported GI: reports: Diarrhea, Nausea, Vomiting, Abdominal cramping : reports: No Symptoms Reported Integumentary: reports: Dryness Neuro: reports: Headache, Tremors Hematology: reports: No Symptoms Reported Psychiatric: reports: No Sypmtoms Reported, Judgement Intact, Mood/Affect Appropiate, Orientated x3, other Other Systems: Reviewed and Negative Patient History - Patient Medical History Hx Anemia: No Hx Asthma: No Hx Chronic Obstructive Pulmonary Disease (COPD): No Hx Cancer: No Hx Cardiac Disorders: No Hx Congestive Heart Failure: No Hx Hypertension: No Hx Hypercholesterolemia: No Hx Pacemaker: No HX Cerebrovascular Accident: No Hx Seizures: No Hx Dementia: No Hx Diabetes: No Hx Gastrointestinal Disorders: No Hx Liver Disease: No Hx Genitourinary Disorders: No Hx Sexually Transmitted Disorders: No Hx Renal Disease (ESRD): No Hx Thyroid Disease: No Hx Human Immunodeficiency Virus (HIV): No (Negative 2008) Hx Hepatitis C: No Hx Depression: No Hx Suicide Attempt: No Hx Bipolar Disorder: No Hx Schizophrenia: No Other Medical History: no suicidal,no homicidal - Patient Surgical History Past Surgical History: No Hx Neurologic Surgery: No Hx Cataract Extraction: No Hx Cardiac Surgery: No Hx Lung Surgery: No Hx Breast Surgery: No Hx Breast Biopsy: No Hx Abdominal Surgery: No Hx Appendectomy: No Hx Cholecystectomy: No Hx Genitourinary Surgery: No Hx Section: No Hx Orthopedic Surgery: No Anesthesia Reaction: No - PPD History Previous Implant?: Yes Documented Results: Negative w/proof Implanted On Prior R Admission?: Yes Date: 09/02/17 Results: 0 mm PPD to be Administered?: No - Smoking Cessation Smoking history: Former smoker Have you smoked in the past 12 months: No If you are a former smoker, when did you quit?: at age 39 Hx Chewing Tobacco Use: No Initiated information on smoking cessation: Yes 'Breaking Loose' booklet given: 05/30/18 - Substance & Tx. History Hx Alcohol Use: Yes Hx Substance Use: Yes Substance Use Type: Alcohol, Cocaine, Marijuana Hx Substance Use Treatment: Yes ([facility] 01/29/18 to 01/30/18) - Substances abused Alcohol Substance route: Oral Frequency: Daily Amount used: 1 pt. vodka, 1 six pack beer ( 16 oz) Age of first use: 14 Date of last use: 05/30/18 Marijuana/Hashish Substance route: Smoking Frequency: Daily Amount used: 100$ Age of first use: 13 Date of last use: 05/30/18 Cocaine Substance route: Inhalation Frequency: 3-6 times per week Amount used: $150 Age of first use: 25 Date of last use: 05/30/18 Family Disease History - Family Disease History Family Disease History: Diabetes: Mother (h/o diabetes) Admission Physical Exam BHS - Vital Signs Vital Signs: Vital Signs - 24 hr 05/30/18 12:09 Temperature 98 F Pulse Rate 66 Respiratory 18 Rate Blood Pressure 110/63 - Physical General Appearance: Yes: Moderate Distress, Tremorous, Irritable, Sweating, Anxious HEENTM: Yes: Normal ENT Inspection, ALEKSANDRA, Pharynx Normal Respiratory: Yes: Lungs Clear, Normal Breath Sounds, No Respiratory Distress Neck: Yes: Within Normal Limits, Supple, Trachea in good position Breast: Yes: Within Normal Limits Cardiology: Yes: Within Normal Limits, Regular Rhythm, Regular Rate, S1, S2 Abdominal: Yes: Within Normal Limits, Normal Bowel Sounds, Non Tender, Flat, Soft Genitourinary: Yes: Within Normal Limits Back: Yes: Muscle Spasm Musculoskeletal: Yes: full range of Motion, Back pain, Muscle Pain Extremities: Yes: Tremors Neurological: Yes: educational manager II-XII NML intact, Fully Oriented, Alert, Motor Strength 5/5 Integumentary: Yes: Dry Lymphatic: Yes: Within Normal Limits - Diagnostic (1) Alcohol dependence with uncomplicated withdrawal Current Visit: Yes Status: Acute (2) Cannabis dependence Current Visit: No Status: Chronic (3) Cocaine dependence, uncomplicated Current Visit: No Status: Chronic (4) Dehydration Current Visit: Yes Status: Acute (5) Weight loss Current Visit: Yes Status: Acute Cleared for Admission S - Detox or Rehab [facility] Level of Care: Medically Managed Detox Regimen/Protocol: Librium Inpatient Rehab Admission - Rehab Decision to Admit Inpatient rehab admission?: No
[2018-05-30] MEDS ORDERED: MENTHOL/PHENOL 1 EACH UD MM PRN (14:01)
[2018-05-30] MEDS ORDERED: BISMUTH SUBSALICYLATE 262 MG/15 ML BTL PO PRN (14:01)
[2018-05-30] MEDS ORDERED: ACETAMINOPHEN 325 MG TABLET (FP) PO PRN ×2 (14:01)
[2018-05-30] MEDS ORDERED: MAGNESIUM HYDROX 2400MG/30ML ORAL SUSPENSION 30 ML CUP PO PRN (14:01)
[2018-05-30] MEDS ORDERED: IBUPROFEN 400 MG TABLET (FP) PO PRN (14:01)
[2018-05-30] MEDS ORDERED: MAGNESIUM CITRATE 300 ML BOTTLE PO PRN (14:01)
[2018-05-30] MEDS ORDERED: hydrOXYzine PAMOATE 25 MG CAPSULE (FP) PO PRN (14:01)
[2018-05-30] MEDS ORDERED: chlordiazePOXIDE HCL 25 MG CAPSULE PO PRN (14:01)
[2018-05-30] MEDS ORDERED: MAG HYDROX/AL HYDROX/SIMETH 30 ML UNIT-DOSE CUP PO PRN (14:01)
[2018-05-30] MEDS ORDERED: MELATONIN 5 MG TABLETS PO PRN (14:01)
[2018-05-30] MEDS ORDERED: METHOCARBAMOL 500 MG TABLET PO PRN (14:01)
[2018-05-30] MEDS: chlordiazePOXIDE HCL 25 MG CAPSULE PO SCH ×2 (18:55→22:22)
[2018-05-30] MEDS: THIAMINE HCL 100 MG TABLET (FP) PO SCH (22:22)
[2018-05-30 23:23] LABS: URINE APPEARANCE CLEAR; URINE BILIRUBIN NEGATIVE (NEGATIVE); URINE COLOR YELLOW; URINE GLUCOSE (UA) NEGATIVE (NEGATIVE); URINE KETONE TRACE (NEGATIVE); URINE LEUK ESTERASE NEGATIVE (NEGATIVE); URINE NITRITE NEGATIVE (NEGATIVE); URINE PROTEIN NEGATIVE (NEGATIVE)
[2018-05-31] MEDS: chlordiazePOXIDE HCL 25 MG CAPSULE PO SCH ×2 (06:13→10:41)
[2018-05-31 10:21] LABS: HEMATOCRIT 41.1 % (35.4-49); HEMOGLOBIN 13.4 GM/dL (11.7-16.9); MCH 31.4 pg (25.7-33.7); MCHC 32.7 g/dl (32.0-35.9); MEAN PLT VOLUME 9.3 fl (7.5-11.1); PLATELET COUNT 211 K/MM3 (134-434); RBC 4.28 M/mm3 (4.00-5.60); WHITE BLOOD COUNT 4.8 K/mm3 (4.0-10.0)
[2018-05-31 10:36] LABS: ALBUMIN 3.6 g/dl (3.4-5.0); ALK PHOS 56 U/L (45-117); ANION GAP 4 MMOL/L (8-16); BILIRUBIN,TOTAL 0.7 mg/dL (0.2-1); BLOOD UREA NITROGEN 16 mg/dL (7-18); CALCIUM 8.9 mg/dL (8.5-10.1); CHLORIDE 104 mmol/L (98-107); CO2 30 mmol/L (21-32); CREATININE 1.1 mg/dL (0.55-1.3); GLUCOSE,RANDOM 118 mg/dL (74-106); POTASSIUM 4.1 mmol/L (3.5-5.1); SGOT/AST 21 U/L (15-37); SGPT/ALT 21 U/L (13-61); SODIUM 137 mmol/L (136-145); TOT PROT 7.1 g/dl (6.4-8.2)
[2018-05-31] MEDS: PRENATAL VITAMINS W/ FOLIC ACID TABLET (FP) PO SCH (10:41)
[2018-05-31] MEDS ORDERED: COLLOIDAL OATMEAL 1 BAR EACH TP PRN (11:55)
--- NOTE | 2018-05-31 12:01 | PN ---
S CIWA - CIWA Score Nausea/Vomitin Muscle Tremors: 2 Anxiety: 2 Agitation: 2 Paroxysmal Sweats: 2 Orientation: 0-Oriented Tacttile Disturbances: 1-Very Mild Itch/Numbness Auditory Disturbances: 1-Very Mild Visual Disturbances: 0-None Headache: 2-Mild CIWA-Ar Total Score: 14 S Progress Note (SOAP) Subjective: alert,irritable,anxious,interrupted sleep,tremor Objective: 05/31/18 11:59 Vital Signs Temperature 98.4 F 05/31/18 10:15 Pulse Rate 60 05/31/18 10:15 Respiratory Rate 18 05/31/18 10:15 Blood Pressure 100/56 L 05/31/18 10:15 O2 Sat by Pulse Oximetry (%) 05/31/18 11:59 Laboratory Last Values WBC 4.8 K/mm3 (4.0-10.0) 05/31/18 07:00 RBC 4.28 M/mm3 (4.00-5.60) 05/31/18 07:00 Hgb 13.4 GM/dL (11.7-16.9) 05/31/18 07:00 Hct 41.1 % (35.4-49) 05/31/18 07:00 MCV 96.0 fl (80-96) 05/31/18 07:00 MCH 31.4 pg (25.7-33.7) 05/31/18 07:00 MCHC 32.7 g/dl (32.0-35.9) 05/31/18 07:00 RDW 13.0 % (11.9-15.9) 05/31/18 07:00 Plt Count 211 K/MM3 (134-434) D 05/31/18 07:00 MPV 9.3 fl (7.5-11.1) 05/31/18 07:00 Sodium 137 mmol/L (136-145) 05/31/18 07:00 Potassium 4.1 mmol/L (3.5-5.1) 05/31/18 07:00 Chloride 104 mmol/L (98-107) 05/31/18 07:00 Carbon Dioxide 30 mmol/L (21-32) 05/31/18 07:00 Anion Gap 4 MMOL/L (8-16) L 05/31/18 07:00 BUN 16 mg/dL (7-18) 05/31/18 07:00 Creatinine 1.1 mg/dL (0.55-1.3) 05/31/18 07:00 Creat Clearance w eGFR 70.02 (>60) 05/31/18 07:00 Random Glucose 118 mg/dL (74-106) H 05/31/18 07:00 Calcium 8.9 mg/dL (8.5-10.1) 05/31/18 07:00 Total Bilirubin 0.7 mg/dL (0.2-1) 05/31/18 07:00 AST 21 U/L (15-37) 05/31/18 07:00 ALT 21 U/L (13-61) 05/31/18 07:00 Alkaline Phosphatase 56 U/L (45-117) 05/31/18 07:00 Total Protein 7.1 g/dl (6.4-8.2) 05/31/18 07:00 Albumin 3.6 g/dl (3.4-5.0) 05/31/18 07:00 Urine Color Yellow 05/30/18 16:22 Urine Appearance Clear 05/30/18 16:22 Urine pH 6.0 (5.0-8.0) D 05/30/18 16:22 Ur Specific [place] 1.012 (1.010-1.035) 05/30/18 16:22 Urine Protein Negative (NEGATIVE) 05/30/18 16:22 Urine Glucose (UA) Negative (NEGATIVE) 05/30/18 16:22 Urine Ketones Trace (NEGATIVE) H 05/30/18 16:22 Urine Blood Negative (NEGATIVE) 05/30/18 16:22 Urine Nitrite Negative (NEGATIVE) 05/30/18 16:22 Urine Bilirubin Negative (NEGATIVE) 05/30/18 16:22 Urine Urobilinogen 1.0 mg/dL (0.2-1.0) 05/30/18 16:22 Ur Leukocyte Esterase Negative (NEGATIVE) 05/30/18 16:22 RPR Titer Nonreactive (NONREACTIVE) 05/31/18 07:00 Assessment: 05/31/18 12:00 withdrawal symptom Plan: continue detox,patient would like regimen to change to valium
[2018-05-31] MEDS ORDERED: diazePAM 5 MG TABLET PO PRN (12:03)
[2018-05-31] MEDS: diazePAM 5 MG TABLET PO SCH ×2 (14:00→22:45)
[2018-05-31] MEDS ORDERED: chlordiazePOXIDE HCL 25 MG CAPSULE PO SCH (17:00)
[2018-05-31] MEDS: THIAMINE HCL 100 MG TABLET (FP) PO SCH (22:44)
[2018-06-01] MEDS: diazePAM 5 MG TABLET PO SCH ×3 (05:37→22:33)
[2018-06-01] MEDS: PRENATAL VITAMINS W/ FOLIC ACID TABLET (FP) PO SCH (10:17)
--- NOTE | 2018-06-01 13:53 | PN ---
S CIWA - CIWA Score Nausea/Vomitin-Mild Nausea/No Vomiting Muscle Tremors: 2 Anxiety: 4-Mod. Anxious/Guarded Agitation: 1-Slight > Activity Paroxysmal Sweats: No Perspiration Orientation: 0-Oriented Tacttile Disturbances: 1-Very Mild Itch/Numbness Auditory Disturbances: 0-None Visual Disturbances: 0-None Headache: 2-Mild CIWA-Ar Total Score: 11 BHS Progress Note (SOAP) Subjective: Anxious, Tremors, Nausea, H/A. Objective: PATIENT A & O X 3, OBSERVED AMBULATING ON UNIT. IN NO ACUTE DISTRESS. 06/01/18 13:51 Vital Signs Temperature 98.4 F 06/01/18 13:15 Pulse Rate 44 L 06/01/18 13:15 Respiratory Rate 18 06/01/18 13:15 Blood Pressure 112/69 06/01/18 13:15 O2 Sat by Pulse Oximetry (%) Laboratory Tests 05/30/18 05/31/18 05/31/18 16:22 07:00 07:00 WBC 4.8 RBC 4.28 Hgb 13.4 Hct 41.1 MCV 96.0 MCH 31.4 MCHC 32.7 RDW 13.0 Plt Count 211 D MPV 9.3 Sodium 137 Potassium 4.1 Chloride 104 Carbon Dioxide 30 Anion Gap 4 L BUN 16 Creatinine 1.1 Creat Clearance w eGFR 70.02 Random Glucose 118 H Calcium 8.9 Total Bilirubin 0.7 AST 21 ALT 21 Alkaline Phosphatase 56 Total Protein 7.1 Albumin 3.6 Urine Color Yellow Urine Appearance Clear Urine pH 6.0 D Ur Specific [place] 1.012 Urine Protein Negative Urine Glucose (UA) Negative Urine Ketones Trace H Urine Blood Negative Urine Nitrite Negative Urine Bilirubin Negative Urine Urobilinogen 1.0 Ur Leukocyte Esterase Negative RPR Titer 05/31/18 07:00 WBC RBC Hgb Hct MCV MCH MCHC RDW Plt Count MPV Sodium Potassium Chloride Carbon Dioxide Anion Gap BUN Creatinine Creat Clearance w eGFR Random Glucose Calcium Total Bilirubin AST ALT Alkaline Phosphatase Total Protein Albumin Urine Color Urine Appearance Urine pH Ur Specific [place] Urine Protein Urine Glucose (UA) Urine Ketones Urine Blood Urine Nitrite Urine Bilirubin Urine Urobilinogen Ur Leukocyte Esterase RPR Titer Nonreactive LABS NOTED. Assessment: 06/01/18 13:52 WITHDRAWAL SYMPTOMS. BRADYCARDIA. 06/01/18 13:52 Plan: CONTINUE DETOX. INCREASE DAILY PO FLUID INTAKE.
[2018-06-01] MEDS ORDERED: chlordiazePOXIDE HCL 10 MG CAPSULE PO SCH (17:00)
[2018-06-01] MEDS ORDERED: chlordiazePOXIDE HCL 10 MG CAPSULE PO PRN (17:00)
[2018-06-01] MEDS: THIAMINE HCL 100 MG TABLET (FP) PO SCH (22:33)
[2018-06-02 05:54] VITALS: TEMP 97.2
[2018-06-02] MEDS ORDERED: diazePAM 5 MG TABLET PO ONE (06:00)
[2018-06-02 09:38] VITALS: BP 108/75; PULSE 64
--- NOTE | 2018-06-02 09:39 | DS ---
[facility] Detox Discharge Summary Admission Date: 05/30/18 Discharge Date: 06/02/18 - History Present History: Alcohol Dependence Additional Comments: 53 years old male admitted on 05/30/18 for alcohol withdrawal stabilization completed alcohol detox regimen [facility] Pertinent Past History: bring in lab report to follow up appointment - Physical Exam Results Vital Signs: Vital Signs Temperature 97.2 F L 06/02/18 09:38 Pulse Rate 64 06/02/18 09:38 Respiratory Rate 18 06/02/18 09:38 Blood Pressure 108/75 06/02/18 09:38 O2 Sat by Pulse Oximetry (%) Pertinent Admission Physical Exam Findings: alcohol withdrawal sx Laboratory Last Values WBC 4.8 K/mm3 (4.0-10.0) 05/31/18 07:00 RBC 4.28 M/mm3 (4.00-5.60) 05/31/18 07:00 Hgb 13.4 GM/dL (11.7-16.9) 05/31/18 07:00 Hct 41.1 % (35.4-49) 05/31/18 07:00 MCV 96.0 fl (80-96) 05/31/18 07:00 MCH 31.4 pg (25.7-33.7) 05/31/18 07:00 MCHC 32.7 g/dl (32.0-35.9) 05/31/18 07:00 RDW 13.0 % (11.9-15.9) 05/31/18 07:00 Plt Count 211 K/MM3 (134-434) D 05/31/18 07:00 MPV 9.3 fl (7.5-11.1) 05/31/18 07:00 Sodium 137 mmol/L (136-145) 05/31/18 07:00 Potassium 4.1 mmol/L (3.5-5.1) 05/31/18 07:00 Chloride 104 mmol/L (98-107) 05/31/18 07:00 Carbon Dioxide 30 mmol/L (21-32) 05/31/18 07:00 Anion Gap 4 MMOL/L (8-16) L 05/31/18 07:00 BUN 16 mg/dL (7-18) 05/31/18 07:00 Creatinine 1.1 mg/dL (0.55-1.3) 05/31/18 07:00 Creat Clearance w eGFR 70.02 (>60) 05/31/18 07:00 Random Glucose 118 mg/dL (74-106) H 05/31/18 07:00 Calcium 8.9 mg/dL (8.5-10.1) 05/31/18 07:00 Total Bilirubin 0.7 mg/dL (0.2-1) 05/31/18 07:00 AST 21 U/L (15-37) 05/31/18 07:00 ALT 21 U/L (13-61) 05/31/18 07:00 Alkaline Phosphatase 56 U/L (45-117) 05/31/18 07:00 Total Protein 7.1 g/dl (6.4-8.2) 05/31/18 07:00 Albumin 3.6 g/dl (3.4-5.0) 05/31/18 07:00 Urine Color Yellow 05/30/18 16:22 Urine Appearance Clear 05/30/18 16:22 Urine pH 6.0 (5.0-8.0) D 05/30/18 16:22 Ur Specific [place] 1.012 (1.010-1.035) 05/30/18 16:22 Urine Protein Negative (NEGATIVE) 05/30/18 16:22 Urine Glucose (UA) Negative (NEGATIVE) 05/30/18 16:22 Urine Ketones Trace (NEGATIVE) H 05/30/18 16:22 Urine Blood Negative (NEGATIVE) 05/30/18 16:22 Urine Nitrite Negative (NEGATIVE) 05/30/18 16:22 Urine Bilirubin Negative (NEGATIVE) 05/30/18 16:22 Urine Urobilinogen 1.0 mg/dL (0.2-1.0) 05/30/18 16:22 Ur Leukocyte Esterase Negative (NEGATIVE) 05/30/18 16:22 RPR Titer Nonreactive (NONREACTIVE) 05/31/18 07:00 lab noted - Treatment Hospital Course: Detox Protocol Followed, Detoxed Safely, Responded well, Discharged Condition Good, Rehab Referral Accepted Patient has Accepted a [facility] Referral to: [facility] - Medication Discharge Medications: Ambulatory Orders NK [No Known Home Medication] 08/31/17 - Diagnosis (1) Alcohol dependence with uncomplicated withdrawal Current Visit: Yes Status: Acute (2) Weight loss Current Visit: Yes Status: Acute - AMA Did Patient Leave Against Medical Advice: No
[2018-06-02] MEDS: PRENATAL VITAMINS W/ FOLIC ACID TABLET (FP) PO SCH (10:21)
[2018-06-02] MEDS ORDERED: chlordiazePOXIDE HCL 10 MG CAPSULE PO SCH (17:00)
== END 2018-06-02 10:36 | disposition home or self-care (01) | DRG 774 ==
LOC: YASAS 11:12 → Y3N 14:21
PROVIDERS: ADMIT Surgery; ATTEND Surgery
PROC: HZ2ZZZZ Detoxification Services for Substance Abuse Treatment (ICD-10-PCS; principal; 2018-05-30)
DX: F10.230 Alcohol dependence with withdrawal, uncomplicated (principal); F14.20 Cocaine dependence, uncomplicated; F12.20 Cannabis dependence, uncomplicated; E86.0 Dehydration; R63.4 Abnormal weight loss; Z68.23 Body mass index [BMI] 23.0-23.9, adult; R00.1 Bradycardia, unspecified; Z87.891 Personal history of nicotine dependence
CPT/HCPCS: 36415; 80053; 81003; 85027; 86593

== ENCOUNTER 2018-09-19 10:44 | Inpatient (IN) | payer OTHER | END 2018-09-23 11:27 | disposition home or self-care (01) | LOC: Y6N 09-20 17:54 → YASAS 10:44 → Y6N 13:07 ==